=== PATIENT | female | born 1965 | race Asian ===

== ENCOUNTER 2020-09-22 12:05 | Emergency (ER) | payer SELFPAY ==
[2020-09-22 12:18] VITALS: BP 151/85; PULSE 81; TEMP 98.1; BMI 25.4
[2020-09-22] MEDS ORDERED: ACETAMINOPHEN 325 MG TABLET (FP) PO ONE (12:30)
== END 2020-09-22 13:00 | disposition home or self-care (01) ==
LOC: FER 12:05
DX: M79.609 Pain in unspecified limb (principal)
CPT/HCPCS: 99283-25